=== PATIENT | female | born 1960 | race Caucasian/White ===

== ENCOUNTER 2018-01-05 19:28 | Emergency (ER) | payer MEDICAID ==
[~2018-01-05] VITALS: Ht 172.7 cm; Wt 122.5 kg
[2018-01-05 19:36] VITALS: Ht 172.7 cm; Wt 122.5 kg
[2018-01-05 21:09] LABS: BASOPHIL % 0.6 % (0-2); PLATELET COUNT 292 x10^3mcL (130-400); RED CELL DISTRIBUTION WIDTH 12.7 % (11.5-14.5)
[2018-01-05 21:27] LABS: CALCIUM 8.3 mg/dL (8.5-10.1); CARBON DIOXIDE 21.9 mmol/L (21-32); CREATININE SERUM 1.1 mg/dL (0.6-1.0); POTASSIUM SERUM 4.4 mmol/L (3.5-5.1)
[2018-01-05 21:35] LABS: BILIRUBIN TOTAL 0.3 mg/dL (0.20-1.00); TOTAL PROTEIN, SERUM 6.6 g/dL (6.4-8.2)
[2018-01-05 21:37] LABS: ALBUMIN 3.2 g/dL (3.4-5.0)
[2018-01-05 22:34] VITALS: BP 112/82
== END 2018-01-05 22:34 | disposition home or self-care (01) ==
LOC: ED 19:28
PROVIDERS: Emergency Medicine
DX: M54.5 Low back pain (principal); R33.9 Retention of urine, unspecified; I10 Essential (primary) hypertension; J44.9 Chronic obstructive pulmonary disease, unspecified; Z76.0 Encounter for issue of repeat prescription; Z88.5 Allergy status to narcotic agent; Z88.0 Allergy status to penicillin
CPT/HCPCS: 36415

== ENCOUNTER 2018-01-07 13:17 | Emergency (ER) | payer MEDICAID ==
[~2018-01-07] VITALS: Ht 172.7 cm; Wt 119.3 kg
[2018-01-07 13:23] VITALS: Ht 172.7 cm; Wt 119.3 kg
[2018-01-07 16:05] VITALS: BP 137/77
== END 2018-01-07 16:05 | disposition home or self-care (01) ==
LOC: ED 13:17
DX: R33.9 Retention of urine, unspecified (principal); I10 Essential (primary) hypertension; J44.9 Chronic obstructive pulmonary disease, unspecified; Z88.0 Allergy status to penicillin; Z88.5 Allergy status to narcotic agent
CPT/HCPCS: Q0162